=== PATIENT | male | born 1985 | race Caucasian/White ===

== ENCOUNTER 2017-03-19 11:48 | Emergency (ER) | payer MEDICAID ==
[~2017-03-19] VITALS: Ht 162.6 cm; Wt 74.0 kg
[2017-03-19 11:58] VITALS: BP 122/71
== END 2017-03-19 16:51 | disposition left against medical advice (07) ==
LOC: ER 16:31
DX: Z53.21 Procedure and treatment not carried out due to patient leaving prior to being seen by health care provider (principal)